=== PATIENT | female | born 1965 | race Caucasian/White ===

== ENCOUNTER → 2017-07-24 | Day surgery (SDC) | payer OTHER ==
[~2017-07-24] VITALS: Ht 160 cm; Wt 63.0 kg
[~2017-07-24] MED LIST: 0.9% Sodium Chloride 1,000 ML IV PRN; CITA40TA PO; CYAN250014 PO; OMPR20CCR PO; Sodium Chloride LOK Flush 10 mL Syringe IV PRN; [UNRECOGNIZED DRUG - CODE] PO; fentaNYL-PF 50 mCg/mL 2 mL Inj IVPUSH PRN
[2017-07-24 08:41] VITALS: BP 108/59; PULSE 70; RESP 14; O2SAT 98
[2017-07-24 09:37] VITALS: BP 101/59; PULSE 78; RESP 15; O2SAT 95
[2017-07-24 09:54] VITALS: BP 101/60; PULSE 76; RESP 16; O2SAT 97
--- NOTE | 2017-07-24 09:57 | ENDO ---
[address] [address] ENDOSCOPY PROCEDURE PATIENT: LANDON GARCIA : 1965 MR#: [id number] ADMIT: 07/24/2017 JOB ID: [id number] DATE: 07/24/2017 TYPE OF PROCEDURE: Esophagogastroduodenoscopy. INDICATIONS: Gastroesophageal reflux. Patient's ASA classification is 2. Mallampati score is 2. MEDICATIONS: 1. Versed 6 mg. 2. Fentanyl 100 mcg. INSTRUMENT USED: [id number] PROCEDURE DETAILS: After informed consent was obtained, the patient was brought to the GI suite where she was placed on oxygen via nasal cannula and monitored with continuous pulse oximeter, telemetry, and blood pressure monitoring. A time-out was performed. Then, she was placed in a left lateral decubitus position and medications were administered for sedation. A bite block was placed. The standard esophagogastroduodenoscopy scope was inserted through the bite block and advanced under direct visualization to the second portion of the duodenum without difficulty. FINDINGS: 1. Normal appearing duodenal bulb, first and second portion. 2. Normal appearing pylorus. 3. Normal-appearing antrum and body the stomach. 4. Retroflexed views in the gastric body revealed a normal-appearing cardia and fundus. 5. Multiple random biopsies were obtained throughout the antrum and body of the stomach. 6. Retroflexed views in the gastric body revealed a normal-appearing cardia and fundus. 7. The GE junction was at approximately 42 cm. There was two short tongues of salmon-colored mucosa arising from the GE junction suggestive of Soto's. Multiple random biopsies were obtained. The remainder of the esophagus appears otherwise unremarkable. 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 RECOMMENDATIONS: 1. Reflux precautions. Continue PPI daily. 2. Follow up in GI clinic. COMPLICATIONS: None. ESTIMATED BLOOD LOSS: Less than 5 mL.
--- NOTE | 2017-07-25 17:23 | PATH ---
SURGICAL PATHOLOGY Attending Physician:Danie Richards CASE STATUS: Signed Out PATIENT NAME: LANDON GARCIA PID: [id number] : 1965 DATE COLLECTED:07/24/2017 17:21 SPECIMEN: 1: Gastric, Biopsy 2: Esophagus, Biopsy CLINICAL HISTORY: 1). GASTRIC BIOPSY (RULE OUT H.PYLORI) 2). DISTAL ESOPHAGUS BIOPSY FINAL DIAGNOSIS: 1. Stomach, Biopsy: Gastric antral and body mucosa with no diagnostic abnormality. Helicobacter organisms not identified. Negative for intestinal metaplasia, dysplasia or malignancy. 2. Distal Esophagus, Biopsy: Columnar mucosa with chronic inflammation. Negative for intestinal metaplasia, dysplasia or malignancy. ICD10: K21.0 GROSS DESCRIPTION: The specimen is received in two formalin filled containers labeled with the patient's name. 1). The specimen is labeled "gastric" and consists of 2 portions of tissue which aggregate to 0.2 x 0.2 x 0.2 CM. The specimen is entirely submitted in cassette 1A. 2). The specimen is labeled "distal esophagus" and consists of 2 portions of tissue which aggregate to 0.2 x 0.2 x 0.2 CM. The specimen is entirely submitted in cassette 2A. 07/24/2017[place] ICD-9 CODES: CPT CODES: 1: 71348 2: 57215 Electronically Signed Out Kayden Ridley MD, Ph.D. Located Within [facility] Pathology [facility] [address] [facility], [place] [address] Technical component performed at [facility], [facility] [address], [place], [address]
== END | disposition home or self-care (01) ==
LOC: END 01:26
PROVIDERS: ATTEND Internal Medicine Gastroenterology
DX: K21.9 Gastro-esophageal reflux disease without esophagitis (principal); R13.10 Dysphagia, unspecified; M79.7 Fibromyalgia; F41.8 Other specified anxiety disorders; K58.9 Irritable bowel syndrome, unspecified; I73.00 Raynaud's syndrome without gangrene; Z87.891 Personal history of nicotine dependence; Z86.69 Personal history of other diseases of the nervous system and sense organs
CPT/HCPCS: 43239; G0500; J2250; J3010; J7030